=== PATIENT | female | born 1985 | race Hispanic/Latino ===

== ENCOUNTER 2021-11-24 16:59 | Emergency (ER) | payer OTHER ==
[2021-11-24 17:19] VITALS: BP 152/76
== END 2021-11-24 23:25 | disposition left against medical advice (07) ==
LOC: ED 16:59
DX: M54.2 Cervicalgia (principal); Z53.21 Procedure and treatment not carried out due to patient leaving prior to being seen by health care provider; V89.2XXA Person injured in unspecified motor-vehicle accident, traffic, initial encounter; Y93.89 Activity, other specified; Y92.89 Other specified places as the place of occurrence of the external cause; Y99.8 Other external cause status